=== PATIENT | female | born 1955 | race Caucasian/White ===

== ENCOUNTER 2018-11-11 08:01 | Inpatient (IN) | payer MEDICARE ==
[2018-11-11] MEDS ORDERED: Lorazepam 2 MG/ML VIAL ONE ×2 (08:11→10:48)
[2018-11-11] MEDS ORDERED: Albuterol Sulfate 2.5 mg/0.5 ml Neb ONE (08:14)
[2018-11-11] MEDS ORDERED: methylPREDNISolone Sod Succ/PF 125 MG/2 ML VIAL ONE (08:18)
[2018-11-11 08:39] LABS: #Eosinphils 0.1 thou/uL (0.0-0.7); #Lymphocytes 0.5 thou/uL (1.20-3.40); #Monocytes 0.4 thou/uL (0.11-0.59); #Neutrophils 9.7 thou/uL (1.40-6.50); %Eosinophils 0.8 % (0.0-10.0); %Lymphocytes 4.8 % (21.0-51.0); %Monocytes 3.3 % (0.0-10.0); %Neutrophils 91.1 % (42.0-75.0); Hemoglobin 16.9 g/dL (12.0-16.0); Mean Corpuscular Hemoglobin 32.1 pg (27.0-31.0); Mean Platelet Volume 7.4 fL (7.4-10.4); Platelet Count 224 thou/uL (130-400); RBC Distribution Width 12.3 % (11.5-14.5); Red Blood Cell (RBC) Count 5.27 mill/uL (4.20-5.40); White Blood Cell (WBC) Count 10.7 thou/uL (4.8-10.8)
[2018-11-11] MEDS ORDERED: Magnesium 2 GM/50 ML BAG (IN WATER) ONE (08:47)
[2018-11-11 08:52] LABS: Actual Bicarbonate (HCO3a) 25.9 mEq/L (22-28); Analyzer IN Cardio ER; Base Excess (BEa) -1.4 mEq/L (-2.0 to +3.0); CO2 Tension 52.8 mmHg (35.0-45.0); Calcium, Ionized 1.23 mmol/L (1.12-1.30); Carboxyhemoglobin (COHb) 3.2 gm% (0.0-3.0); Hemoglobin (Hb) 17.9 g/dL (12.0-16.0); Potassium - ABG Lab 4.19 mmol/L (3.70-5.30); pH, Arterial 7.31 (7.35-7.45)
[2018-11-11 08:53] LABS: O2 Tension (PaO2) 53.6 mmHg (> 80.0); Puncture Site RBRACH
[2018-11-11 08:59] LABS: ALT (SGPT) 98 U/L (8-55); AST (SGOT) 89 U/L (5-34); Albumin 4.4 g/dL (3.4-4.8); Alkaline Phosphatase 104 U/L (40-150); Anion Gap 18 mmol/L (10-20); BUN (Urea Nitrogen) 12 mg/dL (9.8-20.1); Bilirubin, Total 0.2 mg/dL (0.2-1.2); Calc. Creatinine Clearance 0 mL/min (70-130); Calcium 9.9 mg/dL (7.8-10.44); Carbon Dioxide 23 mmol/L (23-31); Chloride 103 mmol/L (98-107); Estimated GFR-MDRD 82; Globulin 2.7 g/dL (2.4-3.5); Glucose 246 mg/dL (80-115); Potassium 4.6 mmol/L (3.5-5.1); Protein, Total 7.1 g/dL (6.0-8.3); Sodium 139 mmol/L (136-145)
[2018-11-11 09:18] LABS: CKMB 13.3 ng/mL (0-6.6)
--- NOTE | 2018-11-11 09:56 | RAD ---
PORTABLE CHEST: Date: 11/11/18 HISTORY: Shortness of breath. COPD. COMPARISON: 11/10/13. FINDINGS: Evidence of new patchy infiltrate in the right lower lung. Lungs otherwise appear clear and unchanged. IMPRESSION: Evidence of new right lower lung infiltrate. Follow-up recommended. POS: CLOE
[2018-11-11 11:59] LABS: Troponin I 0.082 ng/mL (< 0.028)
[2018-11-11] MEDS ORDERED: Ondansetron PF 4 MG/2 ML Vial IVP PRN ×2 (14:45→15:11)
[2018-11-11 15:03] VITALS: BMI 33.1
[2018-11-11] MEDS ORDERED: Dextrose 5% in Water 1,000 ML IV PRN (15:11)
[2018-11-11] MEDS ORDERED: Dextrose 50% Abboject 50 ML SYRINGE SLOW IVP PRN (15:11)
[2018-11-11] MEDS ORDERED: Ondansetron ODT 4 MG TAB PO PRN (15:11)
[2018-11-11] MEDS ORDERED: Benzonatate 100 MG CAP PO PRN (15:11)
[2018-11-11 16:05] LABS: Troponin I 0.082 ng/mL (< 0.028)
[2018-11-11] MEDS: Budesonide 0.5 MG/2 ML NEB INH SCH (17:00)
[2018-11-11] MEDS: methylPREDNISolone Sod Succ 40 MG VIAL IVP SCH (18:55)
--- NOTE | 2018-11-11 19:07 | HP ---
PRIMARY CARE PROVIDER: Dr. French Rubio in [place], [place]. CHIEF COMPLAINT: Shortness of breath. HISTORY OF PRESENT ILLNESS: This is a 62-year-old female, who presents to [facility] Emergency Department and transferred from [facility] Emergency Room after presenting with increased shortness of breath with hypoxemia requiring non-rebreather. The patient admitted to increasing shortness of breath over the last several days, progressing in the last 24 hours. The patient states she was recently hospitalized approximately a week prior to this evaluation, but denied any previous mechanical ventilation or intubation. The patient does admit to smoking up to 2 pack of cigarettes daily with a known history of chronic obstructive pulmonary disease with a home nebulizer intermittently using per family report. The patient denies any home oxygen use and states she does not like using a facemask or BiPAP or CPAP due to the increasing anxiety. The patient denied any documented fever, chills, travel history, or family members with similar symptoms. The patient states she has been compliant with her chronic medication regimen, but is seeking a new primary care provider in the [place] or [place], [place] area. The patient denied any specific chest pain but admits to increased shortness of breath, initially improved in the emergency room, now worsening in the late afternoon of 11/11/2018. In the emergency room, the patient underwent general evaluation including chest imaging showing right lower lobe infiltrate. The patient received magnesium sulfate, Ativan, Solu-Medrol, and DuoNeb in the emergency room. The patient was referred to the Hospitalist Service for further evaluation. PAST MEDICAL HISTORY: 1. Chronic obstructive pulmonary disease. 2. Tobacco abuse, ongoing. 3. Coronary artery disease. 4. Diabetes mellitus type 2. 5. Hypothyroidism. 6. Gastroesophageal reflux disease. 7. Neurogenic syncope. 8. Hiatal hernia. 9. Morbid obesity. 10. Fibromyalgia. 11. History of pneumonia. 12. Hyperlipidemia. 13. Hypertension. PAST SURGICAL HISTORY: 1. Status post carotid stent placement. 2. Status post open cholecystectomy. 3. Status post tonsillectomy. 4. Status post carpal tunnel release. 5. Status post cardiac catheterization. 6. Status post exploratory laparotomy. 7. Status post appendectomy. 8. Status post colonoscopy. CURRENT MEDICATIONS: 1. Amlodipine/benazepril 10/40 mg one tablet p.o. daily. 2. Enteric-coated aspirin 81 mg p.o. daily. 3. Carisoprodol 350 mg p.o. q.i.d. 4. Vitamin D3 5000 units p.o. daily. 5. Cymbalta 120 mg p.o. daily. 6. Fenofibrate 160 mg p.o. daily. 7. Flaxseed oil 1000 mg p.o. daily. 8. Breo Ellipta 100/25 mcg one inhalation daily. 9. Gabapentin 600 mg p.o. q.i.d. 10. Amaryl 4 mg p.o. q.a.m. 11. Aston 10/325 mg one tablet p.o. q.4 hours p.r.n. for pain. 12. Humalog 75/25 KwikPen 40 units subcutaneously q.a.m. and 20 units subcutaneously at bedtime. 13. Krill oil 500 mg p.o. daily. 14. Synthroid 137 mcg p.o. daily. 15. Multivitamin 1 tablet p.o. daily. 16. Zantac 150 mg p.o. daily. ALLERGIES: CARVEDILOL, ADHESIVE TAPE, AND PENICILLIN. FAMILY HISTORY: Positive for diabetes mellitus and hypertension. SOCIAL HISTORY: The patient is . Smokes up to two packs of cigarettes daily for 30 years. No alcohol or illicit drug use. Accompanied by her and [id number] in the hospital. Resides in [place], [place]. Disabled. REVIEW OF SYSTEMS: CONSTITUTIONAL: Negative for weight loss or gain, ability to conduct usual activities. SKIN: Negative for rash, itching. EYES: Negative for double vision, pain. ENT/MOUTH: Negative for nose bleeding, neck stiffness, pain, tenderness. CARDIOVASCULAR: Negative for palpitations, dyspnea on exertion, orthopnea. RESPIRATORY: Negative for shortness of breath, wheezing, cough, hemoptysis, fever or night sweats. GASTROINTESTINAL: Negative for poor appetite, abdominal pain, heartburn, nausea, vomiting, constipation, or diarrhea. GENITOURINARY: Negative for urgency, frequency, dysuria, nocturia. MUSCULOSKELETAL: Negative for pain, swelling. NEUROLOGIC/PSYCHIATRIC: Negative for anxiety, depression. ALLERGY/IMMUNOLOGIC: Negative for skin rash, bleeding tendency. Otherwise, negative except as stated per HPI. PHYSICAL EXAMINATION: VITAL SIGNS: On admission, blood pressure 147/87, pulse 107, respiratory rate 32, temperature 98.7 degrees Fahrenheit, and O2 saturation 94% on non-rebreather. GENERAL APPEARANCE: This is a 62-year-old female with moderate respiratory distress, speaking in 2 to 3 word sentences, sitting at the edge of the bed. HEENT: Pupils are equal, round, reactive to light and accommodation. Extraocular muscles are intact. No scleral icterus. No conjunctival injection. Nares patent. OP is clear. High-flow nasal cannula in place. Currently receiving DuoNeb by face mask. NECK: Supple. No cervical adenopathy. No thyromegaly. No carotid bruits. No JVD noted. Accessory muscle use noted. CHEST: Diminished breath sounds bilaterally, right greater than left. Expiratory wheezing noted. CARDIOVASCULAR: S1 and S2 with distant heart sounds and tachycardia. No murmur, rub, or gallop appreciated. ABDOMEN: Obese, soft, nontender, and nondistended. Bowel sounds are positive in all 4 quadrants. There is no hepatosplenomegaly. No abdominal bruits. No rebound or guarding appreciated. EXTREMITIES: Warm and dry with fair turgor. No clubbing, cyanosis, or asymmetric edema appreciated. Pulses palpable distally at the dorsalis pedis, posterior tibial, and popliteal arteries bilaterally. Capillary refill less than 2 seconds. NEUROLOGIC: Cranial nerves 2 through 12 are grossly intact. No focal or lateralizing signs appreciated. PERTINENT LABORATORY DATA AND X-RAY FINDINGS: Sodium 139, potassium 4.6, chloride 103, CO2 of 23, BUN 12, creatinine 0.72, glucose 246, calcium 9.9, AST 89, ALT 98, alkaline phosphatase 104. Troponin I ranged between 0.082 to 0.117. BNP 288. CBC showed a white blood cell count of 10.7, hemoglobin 17, hematocrit 53, MCV 100, platelet count 224 with 91% neutrophils. ABG dated 11/11/2018 at 8:50 a.m. showed a pH 7.31, pCO2 of 52.8, pO2 of 53.6, bicarbonate 25.9, O2 saturation 89% on 28% FiO2. Portable chest x-ray dated 11/11/2018, showed right lower lobe infiltrate concerning for infectious process. EKG dated 11/11/2018, by my interpretation shows sinus tachycardia with heart rates in the low 100s. Attenuated R-waves noted in the precordial leads. Left axis deviation noted. ASSESSMENT AND PLAN: 1. Acute hypoxic hypercapnic respiratory failure. The patient will be admitted to the telemetry unit. Appears secondary to developing right lower lobe pneumonia in conjunction with chronic obstructive pulmonary disease exacerbation. Continue management as outlined below. Titrate oxygen to clinical response. Consider pulmonology evaluation if the patient does not clinically improve in the next 24 hours. 2. Bacterial pneumonia, right lower lobe. We will continue Levaquin 750 mg IV daily. Add bronchodilator therapy with DuoNeb. Continue oxygen supplementation and general pulmonary supportive management. 3. Chronic obstructive pulmonary disease exacerbation. Continue Solu-Medrol 40 mg IV q.6 hours with additional DuoNebs q.2 hours. Add Pulmicort 0.5 mg inhaled b.i.d. 4. Elevated troponin I. Suspect demand ischemic state in the context of #1. Continue supportive management. Resume aspirin 81 mg daily. Consult Cardiology Service in the a.m. for any further recommendations. Check 2D transthoracic echocardiogram for cardiac efficiency and ejection fraction. 5. Tobacco abuse. We will offer smoking cessation resources prior to discharge. 6. Diabetes mellitus type 2. Insulin sliding scale for reflexive coverage. Accu-Cheks a.c. and at bedtime. ADA diet. 7. Prophylaxis. SCDs while in bed. Pepcid 20 mg p.o. b.i.d. 8. Code status is full. Surrogate medical decision maker is the patient's spouse. Job ID: [id number]
[2018-11-11] MEDS: Famotidine 20 MG TAB PO SCH (20:26)
[2018-11-11] MEDS: ALPRAZolam 0.25 MG TAB PO PRN (21:54)
[2018-11-12] MEDS: methylPREDNISolone Sod Succ 40 MG VIAL IVP SCH ×5 (01:11→23:09)
[2018-11-12] MEDS: Acetaminophen 500 MG TAB PO PRN (04:44)
[2018-11-12 05:42] LABS: ALT (SGPT) 67 U/L (8-55); AST (SGOT) 55 U/L (5-34); Albumin 4.1 g/dL (3.4-4.8); Alkaline Phosphatase 82 U/L (40-150); Anion Gap 15 mmol/L (10-20); BUN (Urea Nitrogen) 15 mg/dL (9.8-20.1); Bilirubin, Total 0.2 mg/dL (0.2-1.2); Calc. Creatinine Clearance 120 mL/min (70-130); Calcium 10.2 mg/dL (7.8-10.44); Carbon Dioxide 26 mmol/L (23-31); Chloride 102 mmol/L (98-107); Estimated GFR-MDRD 89; Globulin 2.7 g/dL (2.4-3.5); Glucose 207 mg/dL (80-115); Potassium 3.9 mmol/L (3.5-5.1); Protein, Total 6.8 g/dL (6.0-8.3); Sodium 139 mmol/L (136-145)
[2018-11-12 05:55] LABS: Band 16 % (5-11); Hemoglobin 16.3 g/dL (12.0-16.0); Lymphocytes 8 % (21-51); MDiff Complete? YES; Mean Corpuscular HGB CONC 32.8 g/dL (32.0-36.0); Mean Corpuscular Hemoglobin 32.8 pg (27.0-31.0); Mean Platelet Volume 7.6 fL (7.4-10.4); Monocytes 4 % (0-10); Neutrophil 72 % (42-75); Platelet Count 217 thou/uL (130-400); RBC Distribution Width 12.1 % (11.5-14.5); Red Blood Cell (RBC) Count 4.95 mill/uL (4.20-5.40); White Blood Cell (WBC) Count 10.9 thou/uL (4.8-10.8)
[2018-11-12] MEDS ORDERED: Spiriva 18 MCG CAP (Box of 5 Caps) INH SCH (07:00)
[2018-11-12] MEDS: Budesonide 0.5 MG/2 ML NEB INH SCH ×2 (07:25→18:57)
[2018-11-12] MEDS ORDERED: DULoxetine 60 MG CAP PO SCH (10:15)
[2018-11-12] MEDS ORDERED: Aspirin 81 mg Enteric Coated Tablet PO SCH (10:15)
[2018-11-12] MEDS ORDERED: Nicotine 21 MG PATCH TD SCH (10:15)
--- NOTE | 2018-11-12 10:37 | PRG ---
DATE OF SERVICE: 11/12/2018 SUBJECTIVE: It was notified by Respiratory Therapy this morning, the patient was requiring high-flow nasal cannula up to 50 L and was still having some difficulties with respirations and wheezing. In reviewing the record, the patient presented here yesterday afternoon after being transferred from [place]. The patient on my evaluation is extremely anxious. Says she wants to go home. Says she has not eaten in 3 days, but cannot really explain why she had not eaten prior to presenting to the hospital. She admits to having severe anxiety which was problematic for her prior to her presentation. She states she just needs something to go to sleep, so she can just forget about this whole day. Feels like she is not getting good nursing care because she has not been able to eat and states she feels dirty. Speaking to the nurse, the patient had been made n.p.o. this morning by Dr. Felton. OBJECTIVE: VITAL SIGNS: Temperature is 99.0, pulse 100, respirations 24, O2 saturation is 92% on 60 L high-flow nasal cannula, and blood pressure 140/76. GENERAL APPEARANCE: Anxious appearing obese female. She is a bit tachypneic, but able to converse. HEART: Regular rate and rhythm with no murmurs. LUNGS: Diminished throughout with some wheezes heard in the expiratory phase when auscultated more anteriorly. ABDOMEN: Soft, nontender, and nondistended. EXTREMITIES: No cyanosis, clubbing, or edema. SKIN: Warm and dry. LABORATORY DATA: White count 10.9, hemoglobin 16.3, and platelets 217. Sodium 139, potassium 3.9, chloride 102, CO2 of 26, BUN 15, creatinine 0.67, glucose 161 to 209, calcium 10.2, AST 55, and ALT 67. Troponin x3 is 0.082. IMPRESSION AND PLAN: 1. Acute hypoxic respiratory failure, requiring increasing amounts of high-flow nasal cannula oxygen. The patient is opposed to wearing CPAP or facemask because it tends to make her anxiety more severe. Given the increasing oxygen requirements and the patient's state of anxiety, we will transfer her to the [facility]. 2. Chronic obstructive pulmonary disease exacerbation. Continuing the patient with bronchodilators, supplemental oxygen, and IV steroids, and we will add Dulera as the patient is on a similar medication at home. 3. Severe anxiety. The patient has Xanax. She reports she has severe anxiety at home and that is the only medicine that she takes at home, although she is also on Cymbalta, it looks like that is more for pain management. We will resume that. 4. Pneumonia. Continuing with IV Levaquin. 5. Elevated troponins, which appears to be [id number] elevation myocardial infarction, type 2, secondary to demand ischemia from hypoxia. Cardiology has been consulted. Discussed with Dr. Felton. The patient remains in sinus tach, but given her likelihood of infection, we will hold off on any procedures, go and let the patient to eat today. Echocardiogram is pending. 6. Tobacco abuse. Adding a nicotine patch. 7. Chronic back pain. We will resume the patient's [place], gabapentin, and Cymbalta. Holding off on muscle relaxers at the moment, which the patient appears to take fairly routinely because I do not want to cause too much sedation, so we will try to add these back slowly as she tolerates them. 8. Diabetes. Continuing with Accu-Cheks and sliding scale insulin, relatively well controlled presently even in spite of the steroids. 9. Elevated liver enzymes, very mild, suspect these are more likely related to steatosis. 10. Polycythemia, likely secondary to the patient's tobacco abuse. We will add Lovenox for DVT prophylaxis and Pepcid for GI prophylaxis and a probiotic. Discussed with Dr. Kerr. Given the difficulty with bipap, change to ICU admission. Time spent in critical care 37 min. Job ID: [id number] MTDD
[2018-11-12 10:51] LABS: Actual Bicarbonate (HCO3a) 25.2 mEq/L (22-28); Analyzer IN Cardio OR; Base Excess (BEa) 0.5 mEq/L (-2.0 to +3.0); CO2 Tension 40.6 mmHg (35.0-45.0); Calcium, Ionized 1.25 mmol/L (1.12-1.30); Carboxyhemoglobin (COHb) 0.7 gm% (0.0-3.0); Hemoglobin (Hb) 16.9 g/dL (12.0-16.0); Potassium - ABG Lab 3.72 mmol/L (3.70-5.30); Puncture Site LRA; pH, Arterial 7.41 (7.35-7.45)
[2018-11-12] MEDS: HYDROcodone/Acetaminophen 10/325 mg Tablet PO PRN ×4 (10:58→21:03)
[2018-11-12] MEDS: ALPRAZolam 0.25 MG TAB PO PRN ×2 (11:00→23:09)
[2018-11-12] MEDS: Gabapentin 300 MG CAP PO SCH ×3 (11:21→20:10)
[2018-11-12] MEDS: Famotidine 20 MG TAB PO SCH ×2 (11:29→20:10)
--- NOTE | 2018-11-12 12:36 | CON ---
DATE OF CONSULTATION: 11/12/2018 TIME SPENT: 45 minutes critical care time. CONSULTING PHYSICIAN: Herrera Greenfield MD REASON FOR CONSULTATION: Respiratory failure related to chronic obstructive pulmonary disease. HISTORY OF THE PRESENT ILLNESS: Mrs. Miranda is a 62-year-old female who moved to this area recently from [facility]. I was called by Dr. Greenfield this morning as the patient is having increasing respiratory difficulty and he felt she needed to be moved to a higher level of care. He told me that the patient had been intolerant to BiPAP and CPAP in the past, mainly due to anxiety. Because of that, I requested that she come to the CCU in the event that she would need to be intubated. In speaking with her, she does not look as bad as I initially thought she would. She has a significant amount of anxiety related to nicotine dependence, narcotic use for back pain, and muscle relaxant use. She is currently on a high-flow oxygen and appears dyspneic, but comfortable. PAST MEDICAL HISTORY: 1. COPD, unknown FEV1. 2. Tobacco abuse, 2 packs per day. 3. Coronary artery disease, requiring 2 coronary stent placements in the past. 4. Diabetes mellitus type 2. 5. Hypothyroidism. 6. Gastroesophageal reflux. 7. Syncope due to neurogenic causes. 8. Hiatal hernia. 9. Morbid obesity. 10. Fibromyalgia. 11. Chronic back pain. 12. Pneumonia. 13. Hyperlipidemia. 14. History of hypertension. PAST SURGICAL HISTORY: 1. History of coronary stent placement. 2. Cholecystectomy. 3. Tonsillectomy. 4. Carpal tunnel release. 5. Cardiac catheterization. 6. Exploratory laparotomy. 7. Appendectomy. 8. Colonoscopy. MEDICATIONS PRIOR TO ADMISSION: These were reviewed and are listed under the summary section on the chart. Significant pulmonary medications include Breo Ellipta 100/25 one puff daily and nebulization treatments as needed. She is not on oxygen at home. ALLERGIES: CARVEDILOL, ADHESIVE TAPE, AND PENICILLIN. FAMILY MEDICAL HISTORY: Remarkable for diabetes and hypertension. SOCIAL HISTORY: Smokes 2 packs per day and has done so for at least 30 years. Does not consume alcohol. Does not use illicit drugs. Currently lives in [place]. REVIEW OF SYSTEMS: Complains of back pain. She has had no fever, chills, nausea, vomiting, hemoptysis, melena, hematochezia, hematuria, or dysuria. Otherwise 12-point review of systems are negative. PHYSICAL EXAMINATION: VITAL SIGNS: Temperature 99, pulse 100, respirations 24, O2 saturation is 93% on 45% high-flow, blood pressure 140/76. GENERAL: The patient is 5 feet 4 inches, weighs 193 pounds. BMI is 33.2. HEENT: Pupils are reactive. Sclerae icteric. Oropharynx clear. NECK: No adenopathy. No JVD. LUNGS: Poor air movement bilaterally with no audible wheezing heard at this time. CARDIAC: S1 and S2, regular without murmur. ABDOMEN: Soft, obese, nontender, and nondistended. EXTREMITIES: No clubbing, cyanosis, or edema. LABORATORY DATA: ABG yesterday showed a pH of 7.31, pCO2 of 52, pO2 of 53 on 3 L nasal cannula. White blood cell count 10.9, hematocrit 49.6, and platelet count 217. Sodium 139, potassium 3.9, chloride 102, CO2 of 26, BUN 15, creatinine 0.7, glucose 209, AST 55, ALT 67. Chest x-ray shows infiltrative type changes in the right base. ASSESSMENT: 1. Chronic obstructive pulmonary disease with exacerbation. 2. Acute on chronic hypoxic respiratory failure related to chronic obstructive pulmonary disease. 3. Right lower lobe pneumonia. 4. Tobacco abuse. 5. Multiple other medical problems as listed above. PLAN: 1. The patient has been taken to the CCU. We will attempt nasal BiPAP to see if she will tolerate that. We will have an ABG repeated. We will continue with nebulization treatments and steroids. We will put her on nicotine patch and continue her [place] and [place] for pain relief. It is important that she not go into pain withdrawal at the current time. 2. Continue antibiotic coverage. Levaquin should be adequate. 3. We will follow closely with you. Thank you for the referral. Job ID: [id number]
[2018-11-12] MEDS: Mometasone/Formoterol 120 PUFF INHALER INH SCH (19:11)
[2018-11-12] MEDS: Saccharomyces boulardii 250 MG CAP PO SCH (20:10)
[2018-11-12] MEDS: HumaLOG 300 UNITS/3 ML VIAL SC PRN (21:01)
[2018-11-12] MEDS ORDERED: cloNIDine 0.1 MG TAB PO PRN (21:18)
[2018-11-13] MEDS: HYDROcodone/Acetaminophen 10/325 mg Tablet PO PRN ×4 (03:26→21:03)
[2018-11-13 05:28] LABS: #Lymphocytes 0.8 thou/uL (1.20-3.40); #Monocytes 0.7 thou/uL (0.11-0.59); #Neutrophils 8.3 thou/uL (1.40-6.50); %Basophils 0.2 % (0.0-1.0); %Eosinophils 0.2 % (0.0-10.0); %Lymphocytes 7.9 % (21.0-51.0); %Monocytes 6.6 % (0.0-10.0); Mean Corpuscular HGB CONC 32.6 g/dL (32.0-36.0); Mean Corpuscular Hemoglobin 32.4 pg (27.0-31.0); Mean Corpuscular Volume 99.4 fL (78.0-98.0); Mean Platelet Volume 7.6 fL (7.4-10.4); Platelet Count 261 thou/uL (130-400); RBC Distribution Width 12.2 % (11.5-14.5); Red Blood Cell (RBC) Count 5.24 mill/uL (4.20-5.40); White Blood Cell (WBC) Count 9.7 thou/uL (4.8-10.8)
[2018-11-13 05:35] LABS: Anion Gap 19 mmol/L (10-20); BUN (Urea Nitrogen) 19 mg/dL (9.8-20.1); Calc. Creatinine Clearance 109 mL/min (70-130); Calcium 10.5 mg/dL (7.8-10.44); Carbon Dioxide 27 mmol/L (23-31); Chloride 97 mmol/L (98-107); Estimated GFR-MDRD 80; Glucose 240 mg/dL (80-115); Potassium 3.8 mmol/L (3.5-5.1); Sodium 139 mmol/L (136-145)
--- NOTE | 2018-11-13 06:02 | PDOC.CTH ---
Cardiology Progress Note - Subjective Doing much better today vs yesterday. Much less SOB present. No CP - Objective Vital Signs Temp Pulse Resp Pulse Ox 11/13/18 04:00 98.6 F 11/13/18 02:45 104 H 24 H 97 11/13/18 00:40 100 20 96 11/13/18 00:00 98.8 F 11/12/18 22:52 105 H 18 94 L 11/12/18 20:49 98 25 H 97 11/12/18 20:00 98.8 F 11/12/18 19:16 99 11/12/18 18:57 102 H 28 H 94 L Weight 193 lb 3 oz 11/11/18 11/12/18 11/13/18 06:59 06:59 06:59 Intake Total 480 935 Output Total 800 1401 Balance -320 -466 - Physical Examination General/Neuro: alert & oriented x3, NAD Neck: carotid US brisk, no JVD present Lungs: unlabored respirations Heart: RRR Abdomen: NT/ND, soft Extremities: + edema B - Labs Result Diagrams: 11/14/18 04:03 11/14/18 04:03 Troponin/CKMB CK-MB (CK-2) 13.3 ng/mL (0-6.6) H* 11/11/18 08:27 Troponin I 0.082 ng/mL (< 0.028) H 11/11/18 15:12 - Assessment/Plan SOB COPD CAD s/p stent placement DM Tobacco abuse Recent EF 50-55%. Pts SOB mainly COPD driven BNP <300 No further CV recommendations. PLan is to fu as outpatient
--- NOTE | 2018-11-13 06:03 | PDOC.CTH ---
Cardiology Progress Note - Objective Vital Signs Temp Pulse Resp Pulse Ox 11/13/18 04:00 98.6 F 11/13/18 02:45 104 H 24 H 97 11/13/18 00:40 100 20 96 11/13/18 00:00 98.8 F 11/12/18 22:52 105 H 18 94 L 11/12/18 20:49 98 25 H 97 11/12/18 20:00 98.8 F 11/12/18 19:16 99 11/12/18 18:57 102 H 28 H 94 L Weight 193 lb 3 oz 11/11/18 11/12/18 11/13/18 06:59 06:59 06:59 Intake Total 480 935 Output Total 800 1401 Balance -320 -466 - Labs Result Diagrams: 11/13/18 04:11 11/13/18 04:10 Troponin/CKMB CK-MB (CK-2) 13.3 ng/mL (0-6.6) H* 11/11/18 08:27 Troponin I 0.082 ng/mL (< 0.028) H 11/11/18 15:12
[2018-11-13] MEDS: Levothyroxine Sodium 25 MCG TAB PO SCH (06:19)
[2018-11-13] MEDS: Levothyroxine Sodium 112 MCG TAB PO SCH (06:19)
[2018-11-13] MEDS: methylPREDNISolone Sod Succ 40 MG VIAL IVP SCH ×3 (06:19→18:15)
[2018-11-13] MEDS: HumaLOG 300 UNITS/3 ML VIAL SC PRN ×3 (06:20→21:02)
[2018-11-13] MEDS: Budesonide 0.5 MG/2 ML NEB INH SCH ×3 (07:11→19:13)
[2018-11-13] MEDS: Mometasone/Formoterol 120 PUFF INHALER INH SCH ×2 (07:11→19:24)
[2018-11-13] MEDS: Glimepiride 4 MG TAB PO SCH (08:15)
--- NOTE | 2018-11-13 08:27 | RAD ---
PORTABLE CHEST: DATE: 11/13/2018. PROVIDED CLINICAL HISTORY: COPD. FINDINGS: Comparison is made with a study dated 11/11/2018. Persistent though less conspicuous parenchymal opac ity involving the right lung base. The lungs appear otherwise clear. Cardiac and mediastinal silhou ette is unchanged in appearance. No pleural fluid or pneumothorax apparent. IMPRESSION: Improvement in aeration of the right lung base. POS: OFF
[2018-11-13] MEDS ORDERED: Magnesium 2 GM/50 ML 2 GM in Premix Bag 1 BAG IVPB SCH (09:00)
[2018-11-13] MEDS: ALPRAZolam 0.25 MG TAB PO PRN ×3 (09:28→22:58)
[2018-11-13] MEDS: Famotidine 20 MG TAB PO SCH ×2 (09:30→21:04)
[2018-11-13] MEDS: DULoxetine 60 MG CAP PO SCH (09:31)
[2018-11-13] MEDS: Fenofibrate Nanocrystallized 145 MG TAB PO SCH (09:31)
[2018-11-13] MEDS: Aspirin 81 mg Enteric Coated Tablet PO SCH (09:31)
[2018-11-13] MEDS: Amlodipine 5 mg/Benazepril 20 mg CAP PO SCH (09:32)
[2018-11-13] MEDS: Nicotine 21 MG PATCH TD SCH (09:34)
[2018-11-13] MEDS: Gabapentin 300 MG CAP PO SCH ×4 (09:39→21:03)
[2018-11-13] MEDS: Saccharomyces boulardii 250 MG CAP PO SCH ×2 (09:43→21:03)
--- NOTE | 2018-11-13 09:56 | PRG ---
DATE OF SERVICE: 11/13/2018 SUBJECTIVE: The patient has not improved very much since she has been able to come off the BiPAP since yesterday. OBJECTIVE: VITAL SIGNS: On exam, temperature is 98.6, pulse 103, blood pressure 154/91, and O2 sat 92%. GENERAL: She does not appear to be in any visible distress. HEENT: Unremarkable. NECK: No JVD. LUNGS: She has tight expiratory wheezing bilaterally. CARDIAC: S1 and S2. Regular. ABDOMEN: Soft. EXTREMITIES: No edema. LABORATORY DATA: White blood cell count 9.7, hematocrit 50.1, and platelet count 251. Sodium 139, potassium 3.8, chloride 97, CO2 of 27, BUN 19, creatinine 0.7 ASSESSMENT: 1. Chronic obstructive pulmonary disease exacerbation. 2. Right lower lobe pneumonia with clinical improvement on x-ray. PLAN: 1. Add Pulmicort nebs and add one dose of magnesium sulfate. 2. Continue nebulization treatments with duoneb every 3 hours. 3. Continue methylprednisolone and antibiotics. Job ID: [id number] [facility]
[2018-11-13] MEDS: Enoxaparin Sodium 40 MG/0.4 ML SYRINGE SC SCH (11:45)
--- NOTE | 2018-11-13 16:58 | PRG ---
DATE OF SERVICE: 11/13/2018 SUBJECTIVE: The patient is feeling better. She is still very short of breath with any minimal exertion, even getting up to the bedside commode, but overall feels like she is better appreciative of the help. OBJECTIVE: VITAL SIGNS: Temperature is 98.8, pulse 100, respirations 21, O2 sat 96% on 4 L nasal cannula, and blood pressure 175/89. GENERAL APPEARANCE: Age-appropriate female, in no distress. She is still a bit tachypneic. She is morbidly obese. Awake and alert. Does not appear nearly anxious. HEENT: PERRL. No acute lesions. HEART: Regular rate and rhythm without murmurs. LUNGS: Diminished with diffuse rales and wheezes. ABDOMEN: Soft, nontender. EXTREMITIES: No cyanosis, clubbing, or edema. LABORATORY DATA: White count 9.7, hemoglobin 17.0, and platelets 261. Sodium 139, potassium 3.8, chloride 97, CO2 is 27, BUN 19, creatinine 0.74, glucose 240, and calcium is 10.5. IMPRESSION AND PLAN: 1. Acute hypoxic respiratory failure secondary to chronic obstructive pulmonary disease and pneumonia. Continue oxygen support. Pulmonary following. 2. Chronic obstructive pulmonary disease. Continue bronchodilator, supplemental oxygen, IV steroids, and Pulmicort nebulizer has been added by Pulmonary. 3. Severe anxiety. Continue with Xanax and her other home medications. 4. Pneumonia. Continue IV Levaquin. 5. Elevated troponin, appears to be non-ST elevation myocardial infarction type 2 secondary to demand ischemia from hypoxia. Cardiology following echocardiogram without significant findings. 6. Tobacco abuse. Nicotine patch applied. 7. Chronic back pain. Continue home dose of [place], gabapentin, and Cymbalta. Her muscle relaxers have been added back by Pulmonary as well. 8. Diabetes mellitus. Blood sugar is a bit high on the steroids. Continue to monitor. 9. Elevated liver enzymes, likely due to steatosis given her obesity and diabetes. 10. Polycythemia, likely secondary to chronic tobacco abuse. No intervention indicated. Job ID: [id number]
[2018-11-13] MEDS: Diabetic Tussin 200 MG/10 ML UDCUP PO PRN (22:58)
[2018-11-14] MEDS: methylPREDNISolone Sod Succ 40 MG VIAL IVP SCH ×4 (00:17→17:54)
[2018-11-14 04:19] LABS: #Lymphocytes 1.3 thou/uL (1.20-3.40); #Neutrophils 8.1 thou/uL (1.40-6.50); %Basophils 0.4 % (0.0-1.0); %Eosinophils 0.1 % (0.0-10.0); %Lymphocytes 12.4 % (21.0-51.0); %Monocytes 9.5 % (0.0-10.0); %Neutrophils 77.6 % (42.0-75.0); Hemoglobin 17.1 g/dL (12.0-16.0); Mean Corpuscular HGB CONC 32.2 g/dL (32.0-36.0); Mean Corpuscular Volume 99.6 fL (78.0-98.0); Mean Platelet Volume 7.1 fL (7.4-10.4); Platelet Count 263 thou/uL (130-400); Red Blood Cell (RBC) Count 5.33 mill/uL (4.20-5.40); White Blood Cell (WBC) Count 10.4 thou/uL (4.8-10.8)
[2018-11-14 04:38] LABS: Anion Gap 13 mmol/L (10-20); BUN (Urea Nitrogen) 19 mg/dL (9.8-20.1); Calc. Creatinine Clearance 126 mL/min (70-130); Carbon Dioxide 30 mmol/L (23-31); Chloride 100 mmol/L (98-107); Estimated GFR-MDRD Greater than 90; Glucose 195 mg/dL (80-115); Potassium 4.9 mmol/L (3.5-5.1); Sodium 138 mmol/L (136-145)
[2018-11-14] MEDS: HumaLOG 300 UNITS/3 ML VIAL SC PRN ×3 (05:54→20:41)
[2018-11-14] MEDS: Levothyroxine Sodium 112 MCG TAB PO SCH (05:55)
[2018-11-14] MEDS: Levothyroxine Sodium 25 MCG TAB PO SCH (05:55)
[2018-11-14] MEDS: Budesonide 0.5 MG/2 ML NEB INH SCH ×3 (06:59→18:12)
[2018-11-14] MEDS: Mometasone/Formoterol 120 PUFF INHALER INH SCH ×2 (07:00→18:12)
[2018-11-14] MEDS: HYDROcodone/Acetaminophen 10/325 mg Tablet PO PRN ×3 (07:53→20:42)
[2018-11-14] MEDS: Gabapentin 300 MG CAP PO SCH ×4 (07:55→20:42)
[2018-11-14] MEDS: Famotidine 20 MG TAB PO SCH ×2 (07:56→20:42)
[2018-11-14] MEDS: Glimepiride 4 MG TAB PO SCH (07:56)
[2018-11-14] MEDS: Aspirin 81 mg Enteric Coated Tablet PO SCH (07:56)
[2018-11-14] MEDS: DULoxetine 60 MG CAP PO SCH (07:57)
[2018-11-14] MEDS: Saccharomyces boulardii 250 MG CAP PO SCH ×2 (07:57→20:42)
--- NOTE | 2018-11-14 09:07 | PRG ---
DATE OF SERVICE: 11/14/2018 This is 35 minutes of critical care time. SUBJECTIVE: The patient remains in the CCU. She did not require BiPAP or high-flow nasal cannula last night. She is still complaining of nasal congestion and chest tightness. OBJECTIVE: VITAL SIGNS: Temperature 98.3, pulse 76, blood pressure . Intake for 24 hours 19, output 1201. HEENT: Unremarkable. NECK: No JVD or bruits. LUNGS: She has expiratory wheezing. CARDIAC: S1, S2. Regular. ABDOMEN: Soft. Nontender. EXTREMITIES: No edema. LABORATORY DATA: Sodium 138, potassium 4.9, chloride 100, CO2 of 30, BUN 19, creatinine 0.6, glucose 195. White blood cell count 10.5, hematocrit , and platelet count 263. ASSESSMENT: 1. Chronic obstructive pulmonary disease with exacerbation. 2. Acute hypoxic respiratory failure. 3. Right lower lobe pneumonia. 4. Polycythemia, likely secondary to chronic obstructive pulmonary disease and chronic hypoxemia. PLAN: She can be moved down to the Intermediate Care Unit. We will continue aggressive nebulization treatments and BiPAP as necessary. She will probably require 5 to 7 more hospital days. Job ID: [id number]
[2018-11-14] MEDS: Amlodipine 5 mg/Benazepril 20 mg CAP PO SCH (10:03)
[2018-11-14] MEDS: Nicotine 21 MG PATCH TD SCH (10:03)
[2018-11-14] MEDS: Fenofibrate Nanocrystallized 145 MG TAB PO SCH (10:03)
[2018-11-14] MEDS: Enoxaparin Sodium 40 MG/0.4 ML SYRINGE SC SCH (12:03)
[2018-11-14] MEDS: Diabetic Tussin 200 MG/10 ML UDCUP PO PRN ×2 (15:30→20:42)
[2018-11-14] MEDS: ALPRAZolam 0.25 MG TAB PO PRN (19:39)
[2018-11-14] MEDS: Oxymetazoline HCl 0.05% (30 ML BOT) NS SCH (21:18)
[2018-11-15] MEDS: methylPREDNISolone Sod Succ 40 MG VIAL IVP SCH ×5 (00:20→20:09)
[2018-11-15] MEDS: Levothyroxine Sodium 25 MCG TAB PO SCH ×2 (05:30→05:31)
[2018-11-15] MEDS: Levothyroxine Sodium 112 MCG TAB PO SCH (05:30)
[2018-11-15] MEDS: HumaLOG 300 UNITS/3 ML VIAL SC PRN ×4 (05:32→20:13)
[2018-11-15] MEDS: HYDROcodone/Acetaminophen 10/325 mg Tablet PO PRN ×3 (05:33→20:27)
[2018-11-15 05:46] LABS: #Lymphocytes 0.8 thou/uL (1.20-3.40); #Monocytes 0.3 thou/uL (0.11-0.59); #Neutrophils 7.2 thou/uL (1.40-6.50); %Basophils 0.2 % (0.0-1.0); %Eosinophils 0.1 % (0.0-10.0); %Lymphocytes 9.6 % (21.0-51.0); %Monocytes 3.6 % (0.0-10.0); %Neutrophils 86.4 % (42.0-75.0); Hemoglobin 17.6 g/dL (12.0-16.0); Mean Corpuscular HGB CONC 32.6 g/dL (32.0-36.0); Mean Corpuscular Hemoglobin 31.8 pg (27.0-31.0); Mean Corpuscular Volume 97.7 fL (78.0-98.0); Mean Platelet Volume 7.7 fL (7.4-10.4); Platelet Count 272 thou/uL (130-400); RBC Distribution Width 11.8 % (11.5-14.5); Red Blood Cell (RBC) Count 5.52 mill/uL (4.20-5.40); White Blood Cell (WBC) Count 8.3 thou/uL (4.8-10.8)
[2018-11-15 06:00] LABS: Anion Gap 16 mmol/L (10-20); BUN (Urea Nitrogen) 21 mg/dL (9.8-20.1); Calc. Creatinine Clearance 122 mL/min (70-130); Carbon Dioxide 27 mmol/L (23-31); Chloride 99 mmol/L (98-107); Estimated GFR-MDRD Greater than 90; Glucose 245 mg/dL (80-115); Potassium 4.1 mmol/L (3.5-5.1); Sodium 138 mmol/L (136-145)
[2018-11-15] MEDS: Mometasone/Formoterol 120 PUFF INHALER INH SCH ×2 (06:32→18:32)
[2018-11-15] MEDS: Budesonide 0.5 MG/2 ML NEB INH SCH ×2 (06:32→18:33)
--- NOTE | 2018-11-15 08:48 | PRG ---
DATE OF SERVICE: 11/14/2018 SUBJECTIVE: The patient feels like she is about the same as she was the day before without substantial improvement. She is still having some dyspnea on exertion and shortness of breath. She reports some sinus congestion and chest congestion. OBJECTIVE: VITAL SIGNS: Temperature 98.8, BP 154/90, respirations 19 to 27, O2 saturation 90%. GENERAL APPEARANCE: Age-appropriate female, obese. She is in no distress. She is sleeping and easily awaken. HEART: Regular rate and rhythm without murmur. LUNGS: Diminished with diffuse scattered wheezes and rales. ABDOMEN: Soft, nontender, and nondistended. EXTREMITIES: No cyanosis, clubbing, or edema. LABORATORY DATA: White count 10.4, hemoglobin 17.1, platelets 263. Sodium 138, potassium 4.9, chloride 100, CO2 is 30, BUN 19, creatinine 0.64, glucose 195, calcium 10.0, blood sugar 180 to 280. IMPRESSION AND PLAN: 1. Acute hypoxic respiratory failure secondary to chronic obstructive pulmonary disease. Continue with supplemental oxygen. Pulmonary following. 2. Chronic obstructive pulmonary disease exacerbation. Continue bronchodilator, supplemental oxygen, steroids, and Pulmicort. 3. Pneumonia. Continue with IV Levaquin, appears to be improved. 4. Severe anxiety. Continue Xanax and home medications. 5. Elevated troponin, type 2 jyw-XX-bbytqrv elevation qyr-FB-wxqmrio elevation secondary to demand ischemia related to hypoxia, stable. 6. Tobacco abuse, on nicotine patch. 7. Chronic back pain, stable. Continue her home regimen, [place], gabapentin, Cymbalta, and muscle relaxers. 8. Diabetes mellitus. Blood sugars are tolerable given the steroids, may need to up some sliding scale, continues to be significantly elevated. 9. Polycythemia secondary to chronic tobacco abuse. 10. Elevated liver enzymes, likely related to steatosis, need ultrasound prior to discharge when she is more stable and it is not a pressing issue now. Job ID: [id number] [facility]
[2018-11-15] MEDS: DULoxetine 60 MG CAP PO SCH (08:51)
[2018-11-15] MEDS: Amlodipine 5 mg/Benazepril 20 mg CAP PO SCH (08:51)
[2018-11-15] MEDS: Gabapentin 300 MG CAP PO SCH ×4 (08:51→20:09)
[2018-11-15] MEDS: Saccharomyces boulardii 250 MG CAP PO SCH ×2 (08:52→20:09)
[2018-11-15] MEDS: Famotidine 20 MG TAB PO SCH ×2 (08:52→20:09)
[2018-11-15] MEDS: Aspirin 81 mg Enteric Coated Tablet PO SCH (08:52)
[2018-11-15] MEDS: Glimepiride 4 MG TAB PO SCH (08:52)
[2018-11-15] MEDS: Fenofibrate Nanocrystallized 145 MG TAB PO SCH (08:52)
[2018-11-15] MEDS: Nicotine 21 MG PATCH TD SCH (08:53)
[2018-11-15] MEDS: Oxymetazoline HCl 0.05% (30 ML BOT) NS SCH ×2 (08:54→20:10)
[2018-11-15] MEDS: ALPRAZolam 0.25 MG TAB PO PRN ×2 (09:00→19:02)
--- NOTE | 2018-11-15 09:27 | PRG ---
DATE OF SERVICE: 11/15/2018 SUBJECTIVE: The patient seems to be breathing somewhat better, although definitely not perfect. OBJECTIVE: VITAL SIGNS: On exam, temperature is 97.6, pulse 95, blood pressure 140/95, and O2 sat 94%. A 24-hour intake 970, output 800. HEENT: Unremarkable. NECK: No JVD. LUNGS: Distant, but clear breath sounds. CARDIAC: S1 and S2, regular. ABDOMEN: Soft. EXTREMITIES: No edema. LABORATORY DATA: Sodium 138, potassium 4.1, chloride 99, CO2 of 27, BUN 21, creatinine 0.6, and glucose 245. ASSESSMENT: 1. Chronic obstructive pulmonary disease with exacerbation. 2. Chronic hypercapnic and hypoxic respiratory failure. PLAN: 1. I will cut her steroid dose down. 2. She needs to be up in a chair several times a day. 3. She probably needs one more day in IMCU. If she can stay off the BiPAP, then she likely will be transferred to the floor tomorrow. 4. Change nebulization treatments to every 4 hours. Job ID: [id number]
[2018-11-15] MEDS: Enoxaparin Sodium 40 MG/0.4 ML SYRINGE SC SCH (11:16)
--- NOTE | 2018-11-15 18:31 | PRG ---
DATE OF SERVICE: 11/15/2018 SUBJECTIVE: The patient does not feel like she is substantially better and still has cough and some wheezing and shortness of breath. OBJECTIVE: VITAL SIGNS: T-max 99.4, pulse 98, respirations 20, O2 saturation 94% on 4 L nasal cannula, BP 144/73. GENERAL APPEARANCE: Age-appropriate female, obese, in no distress. She is awake, interactive, and pleasant. HEART: Regular rate and rhythm without murmurs. LUNGS: Have diminished breath sounds. Diffuse wheezes and rales throughout all lung pina. ABDOMEN: Soft, nontender, and nondistended. Positive bowel sounds. No masses. No organomegaly. EXTREMITIES: No cyanosis, clubbing, or edema. SKIN: Warm and dry. LABORATORY DATA: White count 8.3, hemoglobin 17.6, platelets 272. Sodium 138, potassium 4.1, chloride 99, CO2 is 27, BUN 21, creatinine 0.66, glucose 245, calcium 10. IMPRESSION AND PLAN: 1. Acute hypoxic respiratory failure secondary to chronic obstructive pulmonary disease. 2. Chronic obstructive pulmonary disease exacerbation. Continue bronchodilator. Steroids are being tapered by Pulmonary. Supplemental oxygen and Pulmicort. 3. Pneumonia. Continue with IV Levaquin. Significantly improved. 4. Bronchitis, appears to be more of a bronchitic situation as the pneumonia appears to be better. 5. Severe anxiety. Continue Xanax and home medications. Presently well controlled. 6. Rre-WN-qoecfbpje myocardial infarction, type 2 secondary to demand ischemia, stable. 7. Tobacco abuse. Continue nicotine patch. The patient is committed to quitting. 8. Chronic back pain, stable. Continue gabapentin, [place], Cymbalta, and muscle relaxers. 9. Diabetes mellitus. Blood sugars are still up a bit, but should start improving with tapering of the steroids. 10. Polycythemia secondary to chronic tobacco abuse. 11. Elevated liver enzymes, likely due to steatosis. We will need ultrasound at some point just to confirm the fatty liver, but does not appear to be a pressing issue. Job ID: [id number]
[2018-11-16] MEDS: methylPREDNISolone Sod Succ 40 MG VIAL IVP SCH ×4 (02:52→20:28)
[2018-11-16 05:25] LABS: #Lymphocytes 0.9 thou/uL (1.20-3.40); #Monocytes 0.7 thou/uL (0.11-0.59); #Neutrophils 7.8 thou/uL (1.40-6.50); %Basophils 0.4 % (0.0-1.0); %Eosinophils 0.5 % (0.0-10.0); %Lymphocytes 9.3 % (21.0-51.0); %Monocytes 7.4 % (0.0-10.0); %Neutrophils 82.4 % (42.0-75.0); Hemoglobin 17.3 g/dL (12.0-16.0); Mean Corpuscular HGB CONC 32.2 g/dL (32.0-36.0); Mean Corpuscular Hemoglobin 31.9 pg (27.0-31.0); Mean Platelet Volume 7.6 fL (7.4-10.4); Platelet Count 265 thou/uL (130-400); RBC Distribution Width 11.7 % (11.5-14.5); Red Blood Cell (RBC) Count 5.43 mill/uL (4.20-5.40); White Blood Cell (WBC) Count 9.5 thou/uL (4.8-10.8)
[2018-11-16] MEDS: Levothyroxine Sodium 112 MCG TAB PO SCH (05:32)
[2018-11-16] MEDS: HYDROcodone/Acetaminophen 10/325 mg Tablet PO PRN ×3 (05:32→15:38)
[2018-11-16] MEDS: ALPRAZolam 0.25 MG TAB PO PRN ×3 (05:32→17:39)
[2018-11-16 05:44] LABS: Anion Gap 12 mmol/L (10-20); BUN (Urea Nitrogen) 21 mg/dL (9.8-20.1); Calc. Creatinine Clearance 120 mL/min (70-130); Calcium 10.3 mg/dL (7.8-10.44); Carbon Dioxide 31 mmol/L (23-31); Chloride 98 mmol/L (98-107); Estimated GFR-MDRD 89; Glucose 259 mg/dL (80-115); Potassium 4.4 mmol/L (3.5-5.1); Sodium 137 mmol/L (136-145)
[2018-11-16] MEDS: HumaLOG 300 UNITS/3 ML VIAL SC PRN ×3 (05:50→17:31)
[2018-11-16] MEDS: Budesonide 0.5 MG/2 ML NEB INH SCH ×2 (06:33→19:33)
[2018-11-16] MEDS: Mometasone/Formoterol 120 PUFF INHALER INH SCH ×2 (06:34→19:31)
[2018-11-16] MEDS: Oxymetazoline HCl 0.05% (30 ML BOT) NS SCH ×2 (08:35→21:08)
[2018-11-16] MEDS: Nicotine 21 MG PATCH TD SCH (08:35)
[2018-11-16] MEDS: Saccharomyces boulardii 250 MG CAP PO SCH ×2 (08:35→20:28)
[2018-11-16] MEDS: Aspirin 81 mg Enteric Coated Tablet PO SCH (08:36)
[2018-11-16] MEDS: Gabapentin 300 MG CAP PO SCH ×4 (08:36→20:28)
[2018-11-16] MEDS: Famotidine 20 MG TAB PO SCH ×2 (08:36→20:28)
[2018-11-16] MEDS: Fenofibrate Nanocrystallized 145 MG TAB PO SCH (08:36)
[2018-11-16] MEDS: DULoxetine 60 MG CAP PO SCH (08:36)
[2018-11-16] MEDS: Glimepiride 4 MG TAB PO SCH (08:37)
[2018-11-16] MEDS: Amlodipine 5 mg/Benazepril 20 mg CAP PO SCH (08:45)
--- NOTE | 2018-11-16 10:22 | PRG ---
DATE OF SERVICE: 11/16/2018 SUBJECTIVE: Ms. Miranda is doing somewhat better. She complains of a sore in right shoulder. OBJECTIVE: VITAL SIGNS: Temperature 98.0, pulse 84, blood pressure 139/101, O2 saturation 96%. HEENT: Unremarkable. NECK: No JVD. LUNGS: Diffuse expiratory wheezing. CARDIAC: S1 and S2, regular. ABDOMEN: Soft. EXTREMITIES: No edema. LABORATORY DATA: White blood cell count 9.5, hematocrit 53.8, and platelet count 265. Sodium 137, potassium 4.4, chloride 98, CO2 of 31, BUN 21, creatinine 0.6, and glucose 259. ASSESSMENT: Chronic obstructive pulmonary disease with exacerbation with the patient no longer needing BiPAP. PLAN: She will be transferred out to the medical floor. She will continue nebulization treatments every 4 hours. We will ask Physical Therapy to see her. Job ID: [id number]
--- NOTE | 2018-11-16 12:02 | PDOC.PN ---
- Subjective Encounter Start Date: 11/16/18 (f/u DM) Encounter Start Time: 12:00 Subjective: Pt c/o back pain - chronic, a feeling like she pulled a muscle in the right -: side of her chest. Feels like she is getting weaker. - Objective Resuscitation Status - Order Detail: 11/11/18 14:17 Resuscitation Status Routine Resuscitation Status: FULL: Full Resuscitation Vital Signs & Weight: Vital Signs (12 hours) Temp Pulse Resp Pulse Ox 11/16/18 11:16 97.6 F 11/16/18 10:52 95 24 H 92 L 11/16/18 08:00 95 11/16/18 07:18 98.0 F 11/16/18 06:33 88 17 97 11/16/18 04:00 97.6 F 11/16/18 02:22 90 24 H 91 L 11/16/18 00:47 97.6 F Weight Weight 192 lb 12.8 oz Most Recent Monitor Data Heart Rate from ECG 79 NIBP 154/78 NIBP BP-Mean 103 Respiration from ECG 26 SpO2 92 I&O: 11/15/18 11/16/18 11/17/18 06:59 06:59 06:59 Intake Total 970 1270 Output Total 800 650 Balance 170 620 Result Diagrams: 11/16/18 05:05 11/16/18 05:05 Additional Labs: Accuchecks 11/16/18 11/16/18 11/15/18 10:35 05:40 20:09 POC Glucose 272 H 230 H 255 H 11/15/18 11/14/18 16:30 12:23 POC Glucose 233 H 110 EKG Reviewed by me: Yes (sinus 90's) Phys Exam - Physical Examination Constitutional: NAD Respiratory: no rales wheezing throughout, fair air movement Cardiovascular: RRR, no significant murmur Gastrointestinal: soft, non-tender, no distention, positive bowel sounds ttp along the soft tissue of right axilla, no palpable abnormality Neurological: non-focal, moves all 4 limbs Psychiatric: normal affect Skin: no rash Dx/Plan (1) Acute respiratory failure with hypoxia and hypercapnia Code(s): J96.01 - ACUTE RESPIRATORY FAILURE WITH HYPOXIA; J96.02 - ACUTE RESPIRATORY FAILURE WITH HYPERCAPNIA Status: Acute (2) COPD with exacerbation Code(s): J44.1 - CHRONIC OBSTRUCTIVE PULMONARY DISEASE W (ACUTE) EXACERBATION Status: Chronic (3) Pneumonia Code(s): J18.9 - PNEUMONIA, UNSPECIFIED ORGANISM Status: Acute Qualifiers: Pneumonia type: due to unspecified organism Laterality: right Lung location: lower lobe of lung Qualified Code(s): J18.1 - Lobar pneumonia, unspecified organism (4) Tobacco abuse Code(s): Z72.0 - TOBACCO USE Status: Chronic (5) Diabetes Code(s): E11.9 - TYPE 2 DIABETES MELLITUS WITHOUT COMPLICATIONS Status: Chronic Qualifiers: Diabetes mellitus type: type 2 Diabetes mellitus long chain beamer insulin use: with long chain beamer use (6) NSTEMI (non-ST elevated myocardial infarction) Code(s): I21.4 - NON-ST ELEVATION (NSTEMI) MYOCARDIAL INFARCTION Status: Acute (7) Polycythemia Code(s): D75.1 - SECONDARY POLYCYTHEMIA Status: Chronic (8) Elevated liver enzymes Code(s): R74.8 - ABNORMAL LEVELS OF OTHER SERUM ENZYMES Status: Acute - Plan * Pneumonia - change to oral abx and pt has received 5 doses, will stop at 7 total * acute resp failure/copd exac - appreciate Dr. Kerr - on IV steroids, nebs, oxygen, inhaled steroids with considerable wheezing * * weakness - consult PT and OT * * Very mild troponin elevation on admission - attributed to demand ischemia * anxiety and chronic pain - continue home meds prn * tobacco abuse - nicotine patch * * DM uncontrolled - start lantus tonight at 15 units and adjust. Pt is on humalog 75/25 per chart at home. * transfer from [facility] * * dvt prophy - lovenox * gi prophy - not indicated * code status full * * reviewed plan of care with patient, no questions or further needs at end of eval
[2018-11-16] MEDS: Enoxaparin Sodium 40 MG/0.4 ML SYRINGE SC SCH (12:06)
[2018-11-16] MEDS: Insulin Glargine 15 UNITS in Pre-Filled Syringe 1 EACH SC SCH (20:30)
[2018-11-17] MEDS: methylPREDNISolone Sod Succ 40 MG VIAL IVP SCH ×4 (02:37→20:22)
[2018-11-17] MEDS: HYDROcodone/Acetaminophen 10/325 mg Tablet PO PRN ×2 (02:37→08:09)
[2018-11-17] MEDS: Levothyroxine Sodium 25 MCG TAB PO SCH (05:20)
[2018-11-17] MEDS: Levothyroxine Sodium 112 MCG TAB PO SCH (05:20)
[2018-11-17] MEDS: HumaLOG 300 UNITS/3 ML VIAL SC PRN ×4 (06:23→20:44)
[2018-11-17 07:16] LABS: Anion Gap 13 mmol/L (10-20); BUN (Urea Nitrogen) 20 mg/dL (9.8-20.1); Calc. Creatinine Clearance 122 mL/min (70-130); Calcium 10.2 mg/dL (7.8-10.44); Carbon Dioxide 31 mmol/L (23-31); Chloride 97 mmol/L (98-107); Estimated GFR-MDRD Greater than 90; Glucose 274 mg/dL (80-115); Potassium 4.3 mmol/L (3.5-5.1); Sodium 137 mmol/L (136-145)
[2018-11-17] MEDS: Budesonide 0.5 MG/2 ML NEB INH SCH ×2 (07:38→19:37)
[2018-11-17] MEDS: Mometasone/Formoterol 120 PUFF INHALER INH SCH ×2 (07:43→19:37)
[2018-11-17] MEDS: Oxymetazoline HCl 0.05% (30 ML BOT) NS SCH ×2 (08:08→20:25)
[2018-11-17] MEDS: Fenofibrate Nanocrystallized 145 MG TAB PO SCH (08:09)
[2018-11-17] MEDS: Amlodipine 5 mg/Benazepril 20 mg CAP PO SCH (08:09)
[2018-11-17] MEDS: DULoxetine 60 MG CAP PO SCH (08:10)
[2018-11-17] MEDS: Nicotine 21 MG PATCH TD SCH (08:10)
[2018-11-17] MEDS: Aspirin 81 mg Enteric Coated Tablet PO SCH (08:10)
[2018-11-17] MEDS: Saccharomyces boulardii 250 MG CAP PO SCH ×2 (08:10→20:21)
[2018-11-17] MEDS: Famotidine 20 MG TAB PO SCH ×2 (08:10→20:18)
[2018-11-17] MEDS: Gabapentin 300 MG CAP PO SCH ×4 (08:10→20:19)
[2018-11-17] MEDS: Glimepiride 4 MG TAB PO SCH (09:11)
[2018-11-17] MEDS ORDERED: Insulin Glargine 15 UNITS in Pre-Filled Syringe 1 EACH SC SCH (11:30)
--- NOTE | 2018-11-17 11:31 | PDOC.PN ---
- Subjective Encounter Start Date: 11/17/18 (f/u copd) Encounter Start Time: 11:30 Subjective: Pt able to walk to the nurses station, did feel short of breath. thinks -: today is a little better than yesterday. Denies n/v/abd pain - Objective Resuscitation Status - Order Detail: 11/11/18 14:17 Resuscitation Status Routine Resuscitation Status: FULL: Full Resuscitation Vital Signs & Weight: Vital Signs (12 hours) Temp Pulse Resp BP Pulse Ox 11/17/18 08:05 98 11/17/18 07:51 97.1 F L 79 16 129/79 98 11/17/18 07:43 84 18 96 11/17/18 07:40 84 18 93 L 11/17/18 07:38 84 18 93 L 11/17/18 05:24 97.6 F 81 19 137/79 92 L 11/17/18 02:02 75 18 94 L 11/17/18 00:15 98.2 F 81 21 H 133/77 90 L Weight Weight 192 lb 12.8 oz Most Recent Monitor Data Heart Rate from ECG 96 NIBP 135/80 NIBP BP-Mean 98 Respiration from ECG 26 SpO2 95 I&O: 11/16/18 11/17/18 11/18/18 06:59 06:59 06:59 Intake Total 1270 960 Output Total 650 700 Balance 620 260 Result Diagrams: 11/16/18 05:05 11/17/18 06:14 Additional Labs: Accuchecks 11/17/18 11/16/18 11/16/18 05:21 20:00 16:35 POC Glucose 255 H 224 H 228 H Phys Exam - Physical Examination Constitutional: NAD slight improvement in air movement, continues to wheeze and have rhonchi throughout Cardiovascular: RRR, no significant murmur Gastrointestinal: soft, non-tender, no distention, positive bowel sounds Musculoskeletal: no edema Neurological: non-focal, moves all 4 limbs Psychiatric: normal affect Dx/Plan (1) Acute respiratory failure with hypoxia and hypercapnia Code(s): J96.01 - ACUTE RESPIRATORY FAILURE WITH HYPOXIA; J96.02 - ACUTE RESPIRATORY FAILURE WITH HYPERCAPNIA Status: Acute (2) COPD with exacerbation Code(s): J44.1 - CHRONIC OBSTRUCTIVE PULMONARY DISEASE W (ACUTE) EXACERBATION Status: Chronic (3) Pneumonia Code(s): J18.9 - PNEUMONIA, UNSPECIFIED ORGANISM Status: Acute Qualifiers: Pneumonia type: due to unspecified organism Laterality: right Lung location: lower lobe of lung Qualified Code(s): J18.1 - Lobar pneumonia, unspecified organism (4) Tobacco abuse Code(s): Z72.0 - TOBACCO USE Status: Chronic (5) Diabetes Code(s): E11.9 - TYPE 2 DIABETES MELLITUS WITHOUT COMPLICATIONS Status: Chronic Qualifiers: Diabetes mellitus type: type 2 Diabetes mellitus detention insulin use: with detention use (6) NSTEMI (non-ST elevated myocardial infarction) Code(s): I21.4 - NON-ST ELEVATION (NSTEMI) MYOCARDIAL INFARCTION Status: Acute (7) Polycythemia Code(s): D75.1 - SECONDARY POLYCYTHEMIA Status: Chronic (8) Elevated liver enzymes Code(s): R74.8 - ABNORMAL LEVELS OF OTHER SERUM ENZYMES Status: Acute - Plan * * Pneumonia - on day 6 of 7 levaquin - changed to PO for today * acute resp failure/copd exac - appreciate Dr. Kerr - on IV steroids, nebs, oxygen, inhaled steroids with considerable wheezing. Will transition to prednisone tomorrow, pharmacist to put a stop order for solumedrol after 21:00 dose. Wean oxygen to maintain sats above 90% * * weakness - PT/OT consulted * * Very mild troponin elevation on admission - attributed to demand ischemia, no further workup anticipated in the hospital * anxiety and chronic pain - continue home meds prn * tobacco abuse - nicotine patch * * DM uncontrolled - increase lantus to 15 units BID * * dvt prophy - lovenox * gi prophy - not indicated * code status full * * reviewed plan of care with patient, no questions or further needs at end of eval.
[2018-11-17] MEDS: Enoxaparin Sodium 40 MG/0.4 ML SYRINGE SC SCH (12:58)
[2018-11-17] MEDS: ALPRAZolam 0.25 MG TAB PO PRN ×2 (13:02→20:21)
--- NOTE | 2018-11-17 14:04 | PRG ---
DATE OF SERVICE: 11/17/2018 SUBJECTIVE: The patient is doing reasonably well compared to previous days. Her shortness of breath is less. OBJECTIVE: VITAL SIGNS: On exam, temperature is 97.1, pulse 90, respirations 18, and O2 sat 91% on 4 L. HEENT: Unremarkable. NECK: No JVD. LUNGS: She has much better air movement and less wheezing than before. CARDIAC: S1 and S2, regular. ABDOMEN: Soft. EXTREMITIES: No edema. LABORATORY DATA: Sodium 137, potassium 4.3, BUN 20, creatinine 0.6, and glucose 274. ASSESSMENT: Chronic obstructive pulmonary disease with exacerbation. PLAN: Continue antibiotics, steroids, nebulization therapy. I think she will probably be ready to go home by Monday. Job ID: [id number]
--- NOTE | 2018-11-17 19:08 | EKG ---
Test Reason : Blood Pressure : / mmHG Vent. Rate : 106 BPM Atrial Rate : 106 BPM P-R Int : 170 ms QRS Dur : 086 ms QT Int : 356 ms P-R-T Axes : 075 -72 082 degrees QTc Int : 472 ms Sinus tachycardia Left axis deviation Inferior infarct , age undetermined Anterior infarct , age undetermined Abnormal ECG Confirmed by HENRY SEALS D.O. ([id number]), manager editorial PHUONG MILES ([id number]) on 11/17/2018 7:07:50 PM Referred By: Confirmed By:HENRY SEALS D.O.
[2018-11-17] MEDS: Insulin Glargine 15 UNITS in Pre-Filled Syringe 1 EACH SC SCH (20:24)
[2018-11-18] MEDS: HYDROcodone/Acetaminophen 10/325 mg Tablet PO PRN ×3 (03:47→16:48)
[2018-11-18] MEDS: ALPRAZolam 0.25 MG TAB PO PRN ×2 (03:48→16:49)
[2018-11-18] MEDS: Acetaminophen 500 MG TAB PO PRN ×2 (05:26→20:53)
[2018-11-18] MEDS: Levothyroxine Sodium 25 MCG TAB PO SCH (05:31)
[2018-11-18] MEDS: Levothyroxine Sodium 112 MCG TAB PO SCH (05:31)
[2018-11-18] MEDS: HumaLOG 300 UNITS/3 ML VIAL SC PRN ×3 (05:32→20:55)
[2018-11-18] MEDS: Budesonide 0.5 MG/2 ML NEB INH SCH ×2 (06:18→18:40)
[2018-11-18 06:44] LABS: Anion Gap 12 mmol/L (10-20); BUN (Urea Nitrogen) 22 mg/dL (9.8-20.1); Calc. Creatinine Clearance 122 mL/min (70-130); Calcium 9.6 mg/dL (7.8-10.44); Carbon Dioxide 29 mmol/L (23-31); Chloride 99 mmol/L (98-107); Estimated GFR-MDRD Greater than 90; Glucose 265 mg/dL (80-115); Sodium 136 mmol/L (136-145)
[2018-11-18] MEDS: Mometasone/Formoterol 120 PUFF INHALER INH SCH ×2 (08:09→18:41)
[2018-11-18] MEDS: Nicotine 21 MG PATCH TD SCH (08:58)
[2018-11-18] MEDS: Amlodipine 5 mg/Benazepril 20 mg CAP PO SCH (08:59)
[2018-11-18] MEDS: DULoxetine 60 MG CAP PO SCH (08:59)
[2018-11-18] MEDS: predniSONE 20 MG TAB PO SCH (09:00)
[2018-11-18] MEDS: Saccharomyces boulardii 250 MG CAP PO SCH ×2 (09:00→20:51)
[2018-11-18] MEDS: Gabapentin 300 MG CAP PO SCH ×4 (09:00→20:50)
[2018-11-18] MEDS: Aspirin 81 mg Enteric Coated Tablet PO SCH (09:00)
[2018-11-18] MEDS: Famotidine 20 MG TAB PO SCH ×2 (09:00→20:50)
[2018-11-18] MEDS ORDERED: Insulin Glargine 15 UNITS in Pre-Filled Syringe 1 EACH SC SCH (09:00)
[2018-11-18] MEDS: Fenofibrate Nanocrystallized 145 MG TAB PO SCH (09:00)
[2018-11-18] MEDS: Glimepiride 4 MG TAB PO SCH (09:22)
[2018-11-18] MEDS: Diabetic Tussin 200 MG/10 ML UDCUP PO PRN ×2 (09:22→20:52)
[2018-11-18] MEDS: Enoxaparin Sodium 40 MG/0.4 ML SYRINGE SC SCH (11:52)
--- NOTE | 2018-11-18 15:00 | PRG ---
DATE OF SERVICE: 11/18/2018 SUBJECTIVE: The patient feels better than she has and she is fortunately at a point, where she says she can probably go home. OBJECTIVE: VITAL SIGNS: Temperature is 98.3, pulse 83, respirations 18, O2 saturation 92% on 4 L, and blood pressure 105/69. HEENT: Unremarkable. NECK: No adenopathy. No JVD. LUNGS: She has expiratory wheezing bilaterally, but is much improved. CARDIAC: S1 and S2. Regular. ABDOMEN: Soft. EXTREMITIES: No edema. LABORATORY DATA: Sodium 136, potassium 4, BUN 22, creatinine 0.6, and glucose 265. ASSESSMENT: Chronic obstructive pulmonary disease with exacerbation. PLAN: The patient can probably go home tomorrow. She will need a home O2 evaluation done tomorrow at the time of discharge. She has been changed over to oral medication. Job ID: [id number]
--- NOTE | 2018-11-18 16:09 | PDOC.PN ---
- Subjective Encounter Start Date: 11/18/18 (f/u DM) Encounter Start Time: 14:45 Subjective: Pt feeling better today. Didnt sleep well secondary to nebulizer tx o/n -: reports nose/mouth dry after it was on for a while/difficulty sleeping. -: denies any new sx - Objective Resuscitation Status - Order Detail: 11/11/18 14:17 Resuscitation Status Routine Resuscitation Status: FULL: Full Resuscitation Vital Signs & Weight: Vital Signs (12 hours) Temp Pulse Resp BP Pulse Ox 11/18/18 15:53 82 18 95 11/18/18 11:05 98.3 F 83 18 105/69 92 L 11/18/18 10:02 83 16 95 11/18/18 08:57 94 L 11/18/18 08:09 74 18 94 L 11/18/18 07:52 98.2 F 74 18 119/74 94 L 11/18/18 06:21 74 16 96 11/18/18 06:18 74 16 96 11/18/18 05:08 97.6 F 82 19 121/76 91 L Weight Weight 192 lb 12.8 oz Most Recent Monitor Data Heart Rate from ECG 96 NIBP 135/80 NIBP BP-Mean 98 Respiration from ECG 26 SpO2 95 I&O: 11/17/18 11/18/18 11/19/18 06:59 06:59 06:59 Intake Total 960 1670 Output Total 700 Balance 260 1670 Result Diagrams: 11/16/18 05:05 11/18/18 06:11 Additional Labs: Accuchecks 11/17/18 16:45 POC Glucose 229 H Phys Exam - Physical Examination Constitutional: NAD Respiratory: no rales, no rhonchi less wheezing, improved air movement today which is still decreased Cardiovascular: RRR, no significant murmur Gastrointestinal: soft, non-tender, no distention, positive bowel sounds Musculoskeletal: no edema Neurological: non-focal, moves all 4 limbs Psychiatric: normal affect Dx/Plan (1) Acute respiratory failure with hypoxia and hypercapnia Code(s): J96.01 - ACUTE RESPIRATORY FAILURE WITH HYPOXIA; J96.02 - ACUTE RESPIRATORY FAILURE WITH HYPERCAPNIA Status: Acute (2) COPD with exacerbation Code(s): J44.1 - CHRONIC OBSTRUCTIVE PULMONARY DISEASE W (ACUTE) EXACERBATION Status: Chronic (3) Pneumonia Code(s): J18.9 - PNEUMONIA, UNSPECIFIED ORGANISM Status: Acute Qualifiers: Pneumonia type: due to unspecified organism Laterality: right Lung location: lower lobe of lung Qualified Code(s): J18.1 - Lobar pneumonia, unspecified organism (4) Tobacco abuse Code(s): Z72.0 - TOBACCO USE Status: Chronic (5) Diabetes Code(s): E11.9 - TYPE 2 DIABETES MELLITUS WITHOUT COMPLICATIONS Status: Chronic Qualifiers: Diabetes mellitus type: type 2 Diabetes mellitus snf insulin use: with snf use (6) NSTEMI (non-ST elevated myocardial infarction) Code(s): I21.4 - NON-ST ELEVATION (NSTEMI) MYOCARDIAL INFARCTION Status: Acute (7) Polycythemia Code(s): D75.1 - SECONDARY POLYCYTHEMIA Status: Chronic (8) Elevated liver enzymes Code(s): R74.8 - ABNORMAL LEVELS OF OTHER SERUM ENZYMES Status: Acute - Plan * * Pneumonia - completed levaquin today - 7 day course * * acute resp failure/copd exac - appreciate Dr. Kerr - on oral steroids, nebs , with anticipated d/c tomorrow. * Consult placed for nursing staff to walk with patient in AM, and consult to case management for home oxygen * * weakness - improved, continue pt/ot * * Very mild troponin elevation on admission - attributed to demand ischemia, no further workup anticipated in the hospital * anxiety and chronic pain - continue home meds prn * * tobacco abuse - nicotine patch * * DM - not optimally controlled - attributed to steroid. Increase lantus to 20 units BID * * dvt prophy - lovenox * gi prophy - not indicated * code status full * * reviewed plan of care with patient, no questions or further needs at end of eval. * anticipate d/c in AM with oxygen, rx for nebs, and plan for steroids .
[2018-11-18] MEDS: Insulin Glargine 20 UNITS in Pre-Filled Syringe 1 EACH SC SCH (20:51)
[2018-11-19] MEDS: HYDROcodone/Acetaminophen 10/325 mg Tablet PO PRN ×2 (03:09→12:25)
[2018-11-19] MEDS: ALPRAZolam 0.25 MG TAB PO PRN (03:09)
[2018-11-19] MEDS: Levothyroxine Sodium 112 MCG TAB PO SCH (05:35)
[2018-11-19] MEDS: Levothyroxine Sodium 25 MCG TAB PO SCH (05:35)
[2018-11-19] MEDS: Mometasone/Formoterol 120 PUFF INHALER INH SCH (06:55)
[2018-11-19] MEDS: Budesonide 0.5 MG/2 ML NEB INH SCH (06:55)
[2018-11-19] MEDS: Nicotine 21 MG PATCH TD SCH (08:28)
[2018-11-19] MEDS: Saccharomyces boulardii 250 MG CAP PO SCH (08:29)
[2018-11-19] MEDS: DULoxetine 60 MG CAP PO SCH (08:29)
[2018-11-19] MEDS: Glimepiride 4 MG TAB PO SCH (08:29)
[2018-11-19] MEDS: Gabapentin 300 MG CAP PO SCH ×2 (08:30→13:45)
[2018-11-19] MEDS: Aspirin 81 mg Enteric Coated Tablet PO SCH (08:30)
[2018-11-19] MEDS: Fenofibrate Nanocrystallized 145 MG TAB PO SCH (08:30)
[2018-11-19] MEDS: predniSONE 20 MG TAB PO SCH (08:30)
[2018-11-19] MEDS: Famotidine 20 MG TAB PO SCH (08:30)
[2018-11-19] MEDS: Insulin Glargine 20 UNITS in Pre-Filled Syringe 1 EACH SC SCH (08:31)
[2018-11-19] MEDS: Amlodipine 5 mg/Benazepril 20 mg CAP PO SCH (08:59)
--- NOTE | 2018-11-19 09:36 | PRG ---
DATE OF SERVICE: 11/19/2018 SUBJECTIVE: Mrs. Miranda is doing well and had no acute complaints. OBJECTIVE: VITAL SIGNS: Temperature 98.2, pulse 87, respirations 20, O2 saturation 92% on 2 L, and blood pressure 109/68. HEENT: Unremarkable. NECK: No JVD. CHEST: Clear. CARDIAC: S1, S2. Regular. ABDOMEN: Soft. EXTREMITIES: No edema. ASSESSMENT: Chronic obstructive pulmonary disease with exacerbation. PLAN: She is ready to go home. She may need oxygen temporarily at the time of discharge. I would send her home on a prednisone tapered over a couple of weeks and finish out 7 days of antibiotics if she is not already done so. She may need home oxygen, so she will need a home oxygen evaluation prior to discharge. She has Breo at home. She should stay on that. She is to use albuterol and ipratropium as needed. Smoking cessation has been reinforced. She is using nicotine patch as needed. She can follow up with me in 3 weeks if she needs to. Job ID: [id number]
--- NOTE | 2018-11-19 11:15 | PDOC.PN ---
- Subjective Encounter Start Date: 11/19/18 Encounter Start Time: 11:40 Subjective: Patient feeling better. Still desating off Oxygen. Cough/wheeze/SOB -: all improved. - Objective Resuscitation Status - Order Detail: 11/11/18 14:17 Resuscitation Status Routine Resuscitation Status: FULL: Full Resuscitation MAR Reviewed: Yes Vital Signs & Weight: Vital Signs (12 hours) Temp Pulse Pulse Resp BP BP Pulse Ox 11/19/18 10:45 24 H 87 L 11/19/18 10:12 90 14 11/19/18 09:34 88 129/82 11/19/18 08:28 92 L 11/19/18 08:23 92 L 11/19/18 07:47 98.2 F 87 20 109/68 90 L 11/19/18 06:55 70 14 11/19/18 04:32 98 F 70 20 117/71 94 L 11/19/18 02:10 81 18 97 Weight Weight 192 lb 12.8 oz Most Recent Monitor Data Heart Rate from ECG 96 NIBP 135/80 NIBP BP-Mean 98 Respiration from ECG 26 SpO2 95 I&O: 11/18/18 11/19/18 11/20/18 06:59 06:59 06:59 Intake Total 1670 1800 Balance 1670 1800 Result Diagrams: 11/16/18 05:05 11/18/18 06:11 Additional Labs: Accuchecks 11/18/18 11/18/18 11/18/18 16:30 11:06 05:14 POC Glucose 234 H 128 H 283 H 11/17/18 20:42 POC Glucose 216 H Phys Exam - Physical Examination Constitutional: NAD HEENT: moist MMs rare wheeze, good air movement, no increased WOB on O2 Cardiovascular: RRR Gastrointestinal: soft, positive bowel sounds Neurological: non-focal, moves all 4 limbs Psychiatric: normal affect, A&O x 3 Dx/Plan (1) Acute respiratory failure with hypoxia and hypercapnia Code(s): J96.01 - ACUTE RESPIRATORY FAILURE WITH HYPOXIA; J96.02 - ACUTE RESPIRATORY FAILURE WITH HYPERCAPNIA Status: Acute (2) COPD with exacerbation Code(s): J44.1 - CHRONIC OBSTRUCTIVE PULMONARY DISEASE W (ACUTE) EXACERBATION Status: Chronic Comment: still with RA sats of 87%, will need home O2 (3) Pneumonia Code(s): J18.9 - PNEUMONIA, UNSPECIFIED ORGANISM Status: Resolved Qualifiers: Pneumonia type: due to unspecified organism Laterality: right Lung location: lower lobe of lung Qualified Code(s): J18.1 - Lobar pneumonia, unspecified organism Comment: finished 7 days of antibiotics (4) NSTEMI (non-ST elevated myocardial infarction) Code(s): I21.4 - NON-ST ELEVATION (NSTEMI) MYOCARDIAL INFARCTION Status: Resolved (5) Diabetes Code(s): E11.9 - TYPE 2 DIABETES MELLITUS WITHOUT COMPLICATIONS Status: Chronic Qualifiers: Diabetes mellitus type: type 2 Diabetes mellitus assisted insulin use: with assisted use (6) Polycythemia Code(s): D75.1 - SECONDARY POLYCYTHEMIA Status: Chronic (7) Tobacco abuse Code(s): Z72.0 - TOBACCO USE Status: Chronic (8) Elevated liver enzymes Code(s): R74.8 - ABNORMAL LEVELS OF OTHER SERUM ENZYMES Status: Acute - Plan cont current plan of care, respiratory therapy will arrange home O2, d/c on steroid taper over 2 weeks * . - Discharge Day Encounter end time: 12:15
[2018-11-19] MEDS: Enoxaparin Sodium 40 MG/0.4 ML SYRINGE SC SCH (12:26)
[2018-11-19] MEDS: HumaLOG 300 UNITS/3 ML VIAL SC PRN (12:27)
[2018-11-19 16:13] VITALS: BP 122/80; TEMP 98
--- NOTE | 2018-11-20 01:53 | DIS ---
DATE OF ADMISSION: 11/11/2018 DATE OF DISCHARGE: 11/19/2018 PRIMARY CARE PHYSICIAN: Physician in [place], [place]. REASON FOR ADMISSION: COPD exacerbation and pneumonia. DIAGNOSES AT DISCHARGE: 1. Acute on chronic respiratory failure with hypoxia and hypercapnia. 2. Chronic obstructive pulmonary disease exacerbation. 3. Pneumonia, resolved. 4. Non ST-elevation myocardial infarction, resolved. 5. Diabetes mellitus, type 2, on insulin. 6. Polycythemia. 7. Tobacco abuse. 8. Elevated liver enzymes. PROCEDURES: Echocardiogram showing ejection fraction of 50% to 55%. CONSULTATIONS: 1. Pulmonology, Dr. Kerr. 2. Cardiology, Dr. Felton. SUMMARY OF HOSPITAL COURSE: This is a 62-year-old white female with a known history of COPD, transferred from the [facility] emergency room for increased shortness of breath, hypoxemia requiring non-rebreather. She has continued to smoke cigarettes 2 packs per day and uses a home nebulizer, but no home O2 previously. The patient was admitted to the hospital, she was put on IV steroids and DuoNeb. She was also found to have a pneumonia on her chest x-ray, was started on antibiotics. The patient improved during her hospitalization. She did have indeterminate troponins and Dr. Felton was consulted. These never spiked and resolved during hospitalization and Dr. Felton recommended her that she follow up as an outpatient with Cardiology. The patient had resolution of her pneumonia and finished a 7-day antibiotic course, but she was still requiring oxygen, dropped to 87% on room air without it on the day of discharge, so we are arranging home oxygen for her. Otherwise, she is doing much better and is ready to be discharged home. DISCHARGE MANAGEMENT: Location: Discharged to home. Followup: Follow up with Dr. Kerr in [address] Felton in 3 to 4 weeks. Activity: As tolerated. Diet: Diabetic diet. Special equipment supplies: Home oxygen. DISCHARGE MEDICATIONS: 1. Prednisone taper over 12 days. 2. Resume home amlodipine/benazepril 10/40 mg one cap daily. 3. Aspirin 81 mg daily. 4. Cymbalta 120 mg daily. 5. Fenofibrate 160 mg daily. 6. Gabapentin 600 mg 4 times a day. 7. Glimepiride 4 mg each morning. 8. Hydrocodone as needed. 9. Synthroid 137 mcg daily. 10. Soma 350 mg 4 times a day as needed. 11. Vitamin D3 5000 units daily. 12. Flaxseed oil 1000 mg daily. 13. Breo Ellipta one inhalation daily. 14. Humalog 75/25 mix 40 units in the morning, 20 units at night. 15. MegaRed omega-3 Krill oil 500 mg daily. 16. Multivitamin daily. 17. Zantac 150 mg daily. Arranging the details of this discharge summary took 32 minutes. Job ID: [id number]
== END 2018-11-19 17:12 | disposition home or self-care (01) | DRG 193 ==
LOC: ERS 08:01 → ERHOLD 11:05 → 2NO 14:57 → CCU 11-12 10:19 → IMCU/EMU 11-14 20:05 → T4-B 11-16 14:35
PROVIDERS: ADMIT Family Medicine; ATTEND Family Medicine
DX: J18.1 Lobar pneumonia, unspecified organism (principal); J96.22 Acute and chronic respiratory failure with hypercapnia; J96.21 Acute and chronic respiratory failure with hypoxia; I21.4 Non-ST elevation (NSTEMI) myocardial infarction; J44.0 Chronic obstructive pulmonary disease with (acute) lower respiratory infection; J44.1 Chronic obstructive pulmonary disease with (acute) exacerbation; E11.9 Type 2 diabetes mellitus without complications; I25.10 Atherosclerotic heart disease of native coronary artery without angina pectoris; K21.9 Gastro-esophageal reflux disease without esophagitis; E03.9 Hypothyroidism, unspecified; M79.7 Fibromyalgia; E78.5 Hyperlipidemia, unspecified; I10 Essential (primary) hypertension; D75.1 Secondary polycythemia; F41.9 Anxiety disorder, unspecified; F32.9 Major depressive disorder, single episode, unspecified; F17.210 Nicotine dependence, cigarettes, uncomplicated; R74.8 Abnormal levels of other serum enzymes; E66.01 Morbid (severe) obesity due to excess calories; Z88.0 Allergy status to penicillin; Z88.8 Allergy status to other drugs, medicaments and biological substances; Z79.82 Long term (current) use of aspirin; Z68.33 Body mass index [BMI] 33.0-33.9, adult; Z90.49 Acquired absence of other specified parts of digestive tract; Z79.4 Long term (current) use of insulin
CPT/HCPCS: 36415; 36416; 71045; 80048; 80053; 82553; 82805; 83880; 84484; 85007; 85025; 85027; 93005; 93306; 94640; 94660; 94664; 96365; 96375; 96376; J1650; J1825; J1956; J2060; J2920; J2930; J3475; J7611; J7620; J7626

== ENCOUNTER 2022-09-08 06:09 | Day surgery (SDC) | payer MEDICARE, OTHER ==
[2022-09-07 12:33] VITALS: BMI 37.8
[2022-09-08] MEDS ORDERED: Fluorouracil 100 MG, Enoxaparin 25 MG, EPINEPHrine 0.3 MG in Ophthalmic Irrigation Solu... IRR SCH (06:15)
[2022-09-08] MEDS ORDERED: FENTANYL 50 MCG/ML 1 ML VIAL ONE (06:35)
[2022-09-08] MEDS ORDERED: Cyclopentolate 1% Opth Drop 2 ML BOT ONE (06:36)
[2022-09-08] MEDS ORDERED: Phenylephrine 2.5% Ophth Soln 5 ML BOT ONE (06:36)
[2022-09-08] MEDS ORDERED: Famotidine/PF 20 mg/2ml Vial ONE (06:39)
[2022-09-08] MEDS ORDERED: Maxitrol 0.1% Opth Oint 3.5 GM TUBE ONE (06:58)
[2022-09-08] MEDS ORDERED: Indocyanine Green 25 MG/10 ML VIAL ONE (06:58)
[2022-09-08] MEDS ORDERED: PHENYLEPHRINE-NS 100 MCG/ML 10 ML SYRINGE ONE (06:58)
[2022-09-08] MEDS ORDERED: Ondansetron PF 4 MG/2 ML Vial ONE (06:58)
[2022-09-08] MEDS ORDERED: Metoclopramide HCl 10 MG/2 ML VIAL ONE (06:58)
[2022-09-08] MEDS ORDERED: Bupivacaine 0.75% 10 ML VIAL ONE (06:58)
[2022-09-08] MEDS ORDERED: Triamcinolone 40 MG/ML VIAL ONE (06:58)
[2022-09-08] MEDS ORDERED: PROPOFOL 200 MG/20 ML VIAL ONE (06:58)
[2022-09-08] MEDS ORDERED: Lidocaine 4% PF 5 ML AMP ONE (06:58)
[2022-09-08] MEDS ORDERED: Lidocaine 1% PF 5 ML VIAL ONE (06:58)
== END 2022-09-08 09:40 | disposition home or self-care (01) ==
LOC: SDC 06:09
PROVIDERS: ATTEND Ophthalmology Retina Specialist
PROC: 08T53ZZ Resection of Left Vitreous, Percutaneous Approach (ICD-10-PCS; principal; 2022-09-08)
DX: H35.342 Macular cyst, hole, or pseudohole, left eye (principal); E78.5 Hyperlipidemia, unspecified; I10 Essential (primary) hypertension; E11.9 Type 2 diabetes mellitus without complications; E03.9 Hypothyroidism, unspecified; K21.9 Gastro-esophageal reflux disease without esophagitis; G89.29 Other chronic pain; M54.9 Dorsalgia, unspecified; M43.16 Spondylolisthesis, lumbar region; M54.16 Radiculopathy, lumbar region; M81.0 Age-related osteoporosis without current pathological fracture; M79.7 Fibromyalgia; F17.210 Nicotine dependence, cigarettes, uncomplicated; Z79.4 Long term (current) use of insulin; Z79.890 Hormone replacement therapy; Z79.899 Other long term (current) drug therapy; Z88.0 Allergy status to penicillin; Z88.8 Allergy status to other drugs, medicaments and biological substances; Z91.048 Other nonmedicinal substance allergy status
CPT/HCPCS: 66990; 67025; 67042; 82962; J3010; 36416; J0171; J1650; J2405; J2704; J2765; J3301; J3490; J9190; S0028